=== PATIENT | female | born 1950 | race African-American/Black ===

== ENCOUNTER 2020-03-31 10:31 | Outpatient (CLI) | payer MEDICARE ==
--- NOTE | 2020-03-31 11:34 | RAD ---
CHEST 2 VIEWS: Date: 03/31/2020 HISTORY: Hypertension. COMPARISON: 10/15/2017. FINDINGS: Stable cardiomegaly. Slight costophrenic angle blunting with a small amount of fluid in the region of the right minor fissure. No confluent pneumonia or overt edema. IMPRESSION: 1. Stable cardiomegaly. 2. Probable small right pleural effusion with minimal fluid in the right minor fissure region. 3. Atherosclerosis of aorta with ectasia. POS: AH
== END 2020-03-31 10:32 | disposition home or self-care (01) ==
LOC: NAV RAD 10:31
PROVIDERS: ATTEND Internal Medicine
DX: I10 Essential (primary) hypertension (principal); I70.0 Atherosclerosis of aorta; I51.7 Cardiomegaly; I77.810 Thoracic aortic ectasia
CPT/HCPCS: 71046

== ENCOUNTER 2020-09-09 17:06 | Emergency (ER) | payer MEDICARE ==
[~2020-09-09 17:06] MED LIST: Iopamidol 370 76% 100 ML VIAL ONE
[2020-09-09 17:51] LABS: #Basophils 0.1 thou/uL (0.0-0.2); #Lymphocytes 1.1 thou/uL (1.20-3.40); #Monocytes 0.5 thou/uL (0.11-0.59); #Neutrophils 4.9 thou/uL (1.40-6.50); %Basophils 0.9 % (0.0-1.0); %Neutrophils 75.1 % (42.0-75.0); Hemoglobin 12.8 g/dL (12.0-16.0); Mean Corpuscular HGB CONC 31.1 g/dL (32.0-36.0); Mean Corpuscular Hemoglobin 28.6 pg (27.0-31.0); Mean Corpuscular Volume 91.9 fL (78.0-98.0); Mean Platelet Volume 8.2 fL (7.4-10.4); Platelet Count 166 thou/uL (130-400); RBC Distribution Width 14.4 % (11.5-14.5); Red Blood Cell (RBC) Count 4.47 mill/uL (4.20-5.40); White Blood Cell (WBC) Count 6.5 thou/uL (4.8-10.8)
--- NOTE | 2020-09-09 18:02 | RAD ---
Chest one view HISTORY: Hypertension. COMPARISON: 03/31/2020. FINDINGS: Cardiac silhouette is magnified by projection and upper limits of normal in size. Pulmonary vasculature also upper limits of normal. Subtle patchy, hazy opacity projecting over each lung base. No lobar consolidation or evidence of pneumothorax. IMPRESSION : Borderline cardiomegaly and pulmonary vascular congestion. Correlate for CHF symptoms.
[2020-09-09 18:06] LABS: ALT (SGPT) 20 U/L (8-55); AST (SGOT) 20 U/L (5-34); Albumin 3.9 g/dL (3.4-4.8); Alkaline Phosphatase 56 U/L (40-110); Anion Gap 18 mmol/L (10-20); BUN (Urea Nitrogen) 16 mg/dL (9.8-20.1); Bilirubin, Total 0.5 mg/dL (0.2-1.2); Calc. Creatinine Clearance 0 mL/min (70-130); Calcium 8.9 mg/dL (7.8-10.44); Carbon Dioxide 22 mmol/L (23-31); Chloride 104 mmol/L (98-107); Globulin 3.1 g/dL (2.4-3.5); Glucose 227 mg/dL (80-115); Potassium 3.5 mmol/L (3.5-5.1); Sodium 140 mmol/L (136-145)
[2020-09-09] MEDS ORDERED: Aspirin Chewable 81 MG TAB ONE (18:55)
[2020-09-09] MEDS ORDERED: Dexamethasone 4 mg/ml Vial ONE (19:06)
--- NOTE | 2020-09-09 20:37 | CT ---
CT angiogram chest: 09/09/2020 COMPARISON: None HISTORY: Cough, shortness of breath and weakness with fever TECHNIQUE: Axial CT imaging at 2.5 mm intervals through the chest with IV contrast using CT angiogram protocol. Coronal and sagittal 3-D reformatted imaging obtained. FINDINGS: No axillary, hilar, or mediastinal lymphadenopathy. Imaged upper abdomen demonstrates hepat ic hypodensity suggesting steatosis. Motion artifact and timing of the contrast bolus limits assessment of the distal pulmonary arterial vasculature. The pulmonary arterial trunk and bilateral m ain pulmonary arteries are dilated suggesting pulmonary arterial hypertension. No central pulmonary arterial embolism is evident. No significant pleural, pericardial, or mediastinal fluid. There is atherosclerotic calcification of the aortic arch. There are scattered peripheral areas of groundglass opacity noted within the upper lobes, particularl y on the right. There is patchy increased linear density in both lung bases which may reflect infiltrate, volume loss, or motion related artifact. No endobronchial lesion is appreciated. Review of the osseous structures demonstrates no worrisome lytic or blastic lesions. IMPRESSION: No central pulmonary arterial embolism. Limited assessment of the distal pulmonary arteri al vasculature as above. Dilated pulmonary arterial vasculature suggest pulmonary arterial hypertension. Peripheral areas of groundglass opacity, particularly in the upper lobes, right greater than left, are suspicious for Covid pneumonia.
== END 2020-09-09 22:53 | disposition short-term general hospital (02) ==
LOC: NAV ERS 17:06
DX: U07.1 COVID-19 (principal); R09.02 Hypoxemia; E11.9 Type 2 diabetes mellitus without complications; I10 Essential (primary) hypertension
CPT/HCPCS: 71045; 71275; 80053; 83605; 83880; 84484; 85025; 85379; 93005; 94760; 96374; J1100; J7620; Q9967

== ENCOUNTER 2020-09-13 04:45 | Emergency (ER) | payer MEDICARE ==
[2020-09-13] MEDS ORDERED: Acetaminophen 500 MG TAB ONE (04:58)
[2020-09-13] MEDS ORDERED: Sodium Chloride 0.9% 1,000 ML ONE ×2 (04:58→05:43)
[2020-09-13] MEDS ORDERED: cefTRIAXone\\ROCEPHIN 2 GM VIAL ONE (05:20)
[2020-09-13] MEDS ORDERED: Sodium Chloride 0.9% 100 ML ONE (05:21)
[2020-09-13 05:27] LABS: Band 4 % (5-11); Hemoglobin 12.1 g/dL (12.0-16.0); Lymphocytes 6 % (21-51); MDiff Complete? YES; Mean Corpuscular HGB CONC 32.1 g/dL (32.0-36.0); Mean Corpuscular Hemoglobin 29.2 pg (27.0-31.0); Mean Corpuscular Volume 90.9 fL (78.0-98.0); Mean Platelet Volume 7.8 fL (7.4-10.4); Monocytes 4 % (0-10); Neutrophil 85 % (42-75); Platelet Count 191 thou/uL (130-400); Platelet Morphology Comment Appears Adequate; RBC Distribution Width 13.9 % (11.5-14.5); RBC Morphology Normal; Reactive Lymphocytes 1 % (0-10); Red Blood Cell (RBC) Count 4.16 mill/uL (4.20-5.40); White Blood Cell (WBC) Count 13.4 thou/uL (4.8-10.8)
[2020-09-13 05:34] LABS: ALT (SGPT) 20 U/L (8-55); AST (SGOT) 20 U/L (5-34); Albumin 3.5 g/dL (3.4-4.8); Alkaline Phosphatase 48 U/L (40-110); Anion Gap 20 mmol/L (10-20); BUN (Urea Nitrogen) 24 mg/dL (9.8-20.1); Bilirubin, Total 0.4 mg/dL (0.2-1.2); CK (CPK) 161 U/L (29-168); Calc. Creatinine Clearance 0 mL/min (70-130); Calcium 8.5 mg/dL (7.8-10.44); Carbon Dioxide 18 mmol/L (23-31); Chloride 111 mmol/L (98-107); Glucose 304 mg/dL (80-115); Lipase 48 U/L (8-78); Potassium 4.6 mmol/L (3.5-5.1); Protein, Total 6.5 g/dL (6.0-8.3); Sodium 144 mmol/L (136-145)
[2020-09-13] MEDS ORDERED: Aspirin Chewable 81 MG TAB ONE (05:43)
[2020-09-13] MEDS ORDERED: Azithromycin 500 MG VIAL ONE (05:43)
--- NOTE | 2020-09-13 07:34 | RAD ---
EXAM: Single view of the chest HISTORY: Fever COMPARISON: 09/09/2020 FINDINGS: Single view of the chest shows an enlarged cardiomediastinal silhouette. There is stable e levation of the right hemidiaphragm. There is no evidence of consolidation, mass, or pleural effusion. Degenerative changes are seen in the spine. IMPRESSION: No evidence of acute cardiopulmonary disease
== END 2020-09-13 08:24 | disposition short-term general hospital (02) ==
LOC: NAV ERS 04:45
DX: A41.89 Other specified sepsis (principal); U07.1 COVID-19; J12.82 Pneumonia due to coronavirus disease 2019; I10 Essential (primary) hypertension; E11.9 Type 2 diabetes mellitus without complications; Z79.899 Other long term (current) drug therapy; Z79.4 Long term (current) use of insulin
CPT/HCPCS: 36415; 71045; 80053; 82550; 83605; 83690; 84484; 85025; 87040; 93005; J0456; J0696; J3490; J7050

== ENCOUNTER 2020-09-13 12:17 | Observation (INO) | payer MEDICARE ==
[2020-09-13 12:56] VITALS: BMI 43.4
[2020-09-13] MEDS ORDERED: Ventolin HFA Inhaler 60 PUFF INHALER INH PRN (14:17)
[2020-09-13] MEDS ORDERED: Dextrose 50% Abboject 50 ML SYRINGE SLOW IVP PRN (14:19)
--- NOTE | 2020-09-13 15:31 | HP ---
HISTORY OF PRESENT ILLNESS: The patient is a 70-year-old female, well known to myself with a history of reactive airway disease, treated intermittently with inhaled steroids and bronchodilators; as well as insulin-dependent diabetes; and diastolic heart failure; who has been found 1 week ago to have a COVID positive swab after presenting with new onset of symptom of cough that day. She was subsequently admitted to the hospital and initiated on treatment with dexamethasone, but never developed hypoxemia and was not given remdesivir. She went home and proceeded to become weaker and weaker, and then this morning, had altered mental status associated with significantly elevated glucose and temperature to 103. She was found to have a bronchitis with a white count of 13,000, but chest x-ray showing, no significant infiltrate. She was, therefore, felt not to require admission to the hospital because of lack of hypoxemia and normalization of slightly elevated lactate after IV fluids. She, therefore, has been placed in observation cruz to continue treatment with her antibiotics with Rocephin and Zithromax, but also to be given antibody infusion for her COVID infection as she has not had symptoms for less than a week and is still not hypoxic. She does have comorbidities as mentioned above of the diabetes and reactive airway disease and is felt to be a candidate, the need for treatment with antibodies drug that has been authorized by the FDA for emergency use is explained to the patient and she is agreed to the treatment. PAST MEDICAL HISTORY: She has a past medical history also of degenerative joint disease, status post right total knee replacement. She also has the above-mentioned diabetes, being treated with insulin. She has a history of reactive airway disease, on budesonide inhaler. She has a history of recurrent severe reflux, treated with Protonix. She has a history also of intermittent diarrhea and constipation, treated with colestipol after extensive evaluation by colonoscopy with normal finding. She has a history of some fatigue intermittently in the past with recent increase. Her past medical history is also positive for history of neurosarcoidosis, diagnosed by Ophthalmology with dropped eyelid. PAST SURGICAL HISTORY: Positive for cholecystectomy, total abdominal hysterectomy, and bilateral cataracts. ALLERGIES: SHE HAS NO KNOWN ALLERGIES. FAMILY MEDICAL HISTORY: Positive for diabetes and glaucoma. SOCIAL HISTORY: She lives with her and her granddaughter. She is a nonsmoker. She does not drink alcohol. REVIEW OF SYSTEMS: HEENT: She denies any headaches, dizziness, change in vision. PULMONARY: She has recurrent cough, wheezing, shortness of breath, controlled with steroids and bronchodilators with increased cough today with no sputum production. CARDIOVASCULAR: She denies any chest pain, palpitations, orthopnea, paroxysmal nocturnal dyspnea. She does have a history of elevated BNP and edema in the past, felt to be due to diastolic heart failure and treated with diuretics. She also has a history of hypertension, was well controlled on multiple medications, and she has a history of chronic kidney disease stage 3, which has been stable. GENITOURINARY: She denies any dysuria, hematuria, nocturia. MUSCULOSKELETAL: She denies change in her chronic pain in her knees. NEUROLOGIC: She denies localized numbness or weakness in arms or extremities, although this morning she was altered and confused and does not remember that episode was felt to be due to hyperglycemia. DIAGNOSTIC STUDIES: She has had recent chest x-ray showing no evidence of acute disease. She has had laboratory showing a sodium of 143, potassium 4.0, chloride 112, bicarb 19, BUN 23, creatinine 1.6, and glucose 318. Hemoglobin A1c, however, 6.1. Lactate was 2.1, but did decrease to 1.6 with hydration. AST 20, ALT 20. CK is 161, troponin 0.018. Procalcitonin several days ago was 0.04. ASSESSMENT: A 70-year-old female, multiple comorbidities including obesity, diabetes, hypertension, diastolic heart failure, reactive airway disease, who has developed a cough in the last week, was found to be COVID positive, but was not hypoxic. Discharged on dexamethasone, but has developed increased glucose and has had increasing cough and weakness, is therefore felt to be a candidate for antibody infusion as she is less than 7 days and still not hypoxic, but not improving. We will, therefore, place in the observation cruz, continue on her home medications, give a dose of antibody today and monitor overnight for improvement or for deterioration. Job ID: [id number]
[2020-09-13] MEDS: Labetalol 100 MG TAB PO SCH ×2 (16:20→22:22)
[2020-09-13] MEDS ORDERED: BAMLANIVIMAB 700 MG in Sodium Chloride 0.9% 250 ML 250 ML IVPB SCH ×2 (17:00→19:45)
[2020-09-13] MEDS ORDERED: Acetaminophen 500 MG TAB PO PRN ×2 (17:06→17:55)
[2020-09-13] MEDS: HumaLOG 300 UNITS/3 ML VIAL SC PRN ×2 (17:06→22:32)
[2020-09-13] MEDS ORDERED: diphenhydrAMINE 50 MG/ML VIAL IVP PRN (17:07)
[2020-09-13] MEDS ORDERED: Dexamethasone 4 mg/ml Vial SLOW IVP SCH ×2 (17:30→19:45)
[2020-09-13] MEDS: metFORMIN 500 MG TAB PO SCH (18:03)
[2020-09-13] MEDS: Mometasone/Formoterol 60 PUFF AER INH SCH (18:04)
[2020-09-13] MEDS ORDERED: Sodium Chloride 0.9% 250 ML 250 ML ONE (18:20)
[2020-09-13] MEDS ORDERED: Dexamethasone 4 mg/ml Vial ONE (18:20)
[2020-09-13] MEDS ORDERED: diphenhydrAMINE 50 MG/ML VIAL ONE (18:20)
[2020-09-13] MEDS: Atorvastatin Calcium 10 MG TAB PO SCH (22:23)
[2020-09-14] MEDS: Mometasone/Formoterol 60 PUFF AER INH SCH ×2 (05:40→17:53)
[2020-09-14] MEDS: HumaLOG 300 UNITS/3 ML VIAL SC PRN ×4 (05:43→21:59)
[2020-09-14 05:49] LABS: #Lymphocytes 0.8 thou/uL (1.20-3.40); #Monocytes 0.4 thou/uL (0.11-0.59); #Neutrophils 12.4 thou/uL (1.40-6.50); %Basophils 0.3 % (0.0-1.0); %Monocytes 3.2 % (0.0-10.0); %Neutrophils 90.6 % (42.0-75.0); Hemoglobin 11.8 g/dL (12.0-16.0); Mean Corpuscular HGB CONC 33.4 g/dL (32.0-36.0); Mean Corpuscular Volume 89.8 fL (78.0-98.0); Platelet Count 183 thou/uL (130-400); Red Blood Cell (RBC) Count 3.92 mill/uL (4.20-5.40); White Blood Cell (WBC) Count 13.7 thou/uL (4.8-10.8)
[2020-09-14 05:56] LABS: ALT (SGPT) 17 U/L (8-55); AST (SGOT) 18 U/L (5-34); Albumin 3.3 g/dL (3.4-4.8); Alkaline Phosphatase 48 U/L (40-110); Anion Gap 17 mmol/L (10-20); BUN (Urea Nitrogen) 18 mg/dL (9.8-20.1); Bilirubin, Total 0.5 mg/dL (0.2-1.2); Calc. Creatinine Clearance 96 mL/min (70-130); Calcium 8.1 mg/dL (7.8-10.44); Carbon Dioxide 17 mmol/L (23-31); Chloride 112 mmol/L (98-107); Globulin 2.8 g/dL (2.4-3.5); Glucose 308 mg/dL (80-115); Potassium 4.6 mmol/L (3.5-5.1); Protein, Total 6.1 g/dL (6.0-8.3); Sodium 141 mmol/L (136-145)
[2020-09-14] MEDS: Furosemide 80 MG TAB PO SCH (08:00)
[2020-09-14] MEDS: metFORMIN 500 MG TAB PO SCH ×2 (08:57→17:53)
[2020-09-14] MEDS: Empagliflozin 10 MG TAB PO SCH (08:58)
[2020-09-14] MEDS: Folic Acid 1 MG TAB PO SCH (08:58)
[2020-09-14] MEDS: Labetalol 100 MG TAB PO SCH ×3 (08:58→20:37)
[2020-09-14] MEDS: Lantus 1000 UNITS/10 ML VIAL SC SCH (08:59)
[2020-09-14] MEDS ORDERED: Insulin Glargine 12 UNITS in Pre-Filled Syringe 1 EACH SC SCH (09:00)
--- NOTE | 2020-09-14 09:19 | RAD ---
PORTABLE CHEST 1 VIEW: Date: 09/14/2020 Time: 0845 hours HISTORY: COVID pneumonia. Bacterial bronchitis. COMPARISON: Previous day. FINDINGS/IMPRESSION: The heart size is enlarged. There is continued stable elevation of the right hemidiaphragm. No lobar consolidation, pneumothoraces, or pleural effusions are seen. Mild ill-defined opacities are noted in the lung schulz consistent with history of COVID pneumonia. POS: AH
[2020-09-14] MEDS: Atorvastatin Calcium 10 MG TAB PO SCH (20:36)
[2020-09-15] MEDS: Mometasone/Formoterol 60 PUFF AER INH SCH (06:15)
[2020-09-15] MEDS: Labetalol 100 MG TAB PO SCH (11:46)
[2020-09-15] MEDS: Empagliflozin 10 MG TAB PO SCH (11:46)
[2020-09-15] MEDS: metFORMIN 500 MG TAB PO SCH (11:46)
[2020-09-15] MEDS: Folic Acid 1 MG TAB PO SCH (11:46)
[2020-09-15] MEDS: Furosemide 80 MG TAB PO SCH (11:46)
[2020-09-15] MEDS: Lantus 1000 UNITS/10 ML VIAL SC SCH (11:53)
[2020-09-15 13:00] VITALS: BP 114/60; TEMP 97.8
== END 2020-09-15 13:51 | disposition home or self-care (01) ==
LOC: NAV ACUTE 12:17
PROVIDERS: ADMIT Internal Medicine; ATTEND Internal Medicine
DX: U07.1 COVID-19 (principal); J12.82 Pneumonia due to coronavirus disease 2019; J45.909 Unspecified asthma, uncomplicated; M19.90 Unspecified osteoarthritis, unspecified site; K21.9 Gastro-esophageal reflux disease without esophagitis; K59.00 Constipation, unspecified; D86.89 Sarcoidosis of other sites; I13.0 Hypertensive heart and chronic kidney disease with heart failure and stage 1 through stage 4 chronic kidney disease, or unspecified chronic kidney disease; E11.22 Type 2 diabetes mellitus with diabetic chronic kidney disease; N18.30 Chronic kidney disease, stage 3 unspecified; I50.30 Unspecified diastolic (congestive) heart failure; E11.65 Type 2 diabetes mellitus with hyperglycemia; E66.9 Obesity, unspecified; Z68.41 Body mass index [BMI] 40.0-44.9, adult; Z79.4 Long term (current) use of insulin; Z79.899 Other long term (current) drug therapy; A41.89 Other specified sepsis; I10 Essential (primary) hypertension; E11.9 Type 2 diabetes mellitus without complications
CPT/HCPCS: 36415; 36416; 71045; 80053; 82550; 83605; 83690; 84484; 85025; 87040; 87149; 93005; 96365; 96367; G0378; J0456; J0696; J1100; J1200; J1815; J3490; J7050

== ENCOUNTER 2020-10-08 13:18 | Outpatient (CLI) | payer MEDICARE ==
--- NOTE | 2020-10-08 14:27 | RAD ---
RADIOGRAPH CHEST 2 VIEWS: 10/08/20 at 1:32 p.m. HISTORY: 70-year-old male COVID pneumonia follow-up. COMPARISON: 09/14/20. FINDINGS: There is cardiomegaly. The thoracic aorta is tortuous and ectatic. There is no evidence of air space density, pulmonary edema, or pneumothorax. There is no pleural effusion. Inspiration is deeper on t he current study compared to the previous. The previously described pulmonary densities are no longer present. IMPRESSION: 1) No acute pulmonary findings. 2) Cardiomegaly without congestive heart failure. 3) Ectasia of thoracic aorta. [email or web address] POS: JIN
== END 2020-10-08 13:19 | disposition home or self-care (01) ==
LOC: NAV RAD 13:18
PROVIDERS: ATTEND Internal Medicine
DX: U07.1 COVID-19 (principal); I51.7 Cardiomegaly; I77.810 Thoracic aortic ectasia
CPT/HCPCS: 71046

== ENCOUNTER 2021-06-03 11:34 | Outpatient (CLI) | payer MEDICARE | END 2021-06-03 11:35 | disposition home or self-care (01) | LOC: NAV RAD 11:34 | PROVIDERS: ATTEND Internal Medicine Rheumatology | DX: R06.02 Shortness of breath (principal) | CPT/HCPCS: 71046 ==